=== PATIENT | female | born 1980 | race African-American/Black ===

== ENCOUNTER 2017-03-18 02:06 | Emergency (ER) | payer OTHER ==
[~2017-03-18] VITALS: Ht 162.6 cm; Wt 90.7 kg
[2017-03-18 02:42] LABS: URINE BILIRUBIN NEGATIVE (Negative); URINE BLOOD NEGATIVE (Negative); URINE CLARITY CLEAR; URINE COLOR YELLOW; URINE GLUCOSE-RANDOM* NEGATIVE (Negative); URINE KETONES NEGATIVE (Negative); URINE LEUKOCYTES-REFLEX NEGATIVE (Negative); URINE NITRITE-REFLEX NEGATIVE (Negative); URINE PROTEIN (DIPSTICK) NEGATIVE (Negative); URINE UROBILINOGEN 0.2 E.U./dl (0.2-1.0)
[2017-03-18 03:07] LABS: HEMATOCRIT 37.9 % (37.0-47.0); MCH 28.8 pg (26.0-34.0); MCHC 34.3 g/dL (28.0-37.0); MCV 83.9 fL (80.0-100.0); RBC 4.52 mil/uL (4.20-5.00); RDW 13.7 % (10.5-14.5)
[2017-03-18 03:15] LABS: CALCIUM 8.6 mg/dL (8.5-10.1); CREATININE 0.9 mg/dL (0.6-1.0); POTASSIUM 3.7 mmol/L (3.5-5.1)
[2017-03-18] MEDS ORDERED: ONDANSETRON HCL4 M2 PO (03:19)
[2017-03-18] MEDS ORDERED: TESSALON PERLE100 MG PO (03:19)
[2017-03-18] MEDS ORDERED: OSELB75 PO (03:19)
== END 2017-03-18 03:53 | disposition home or self-care (01) ==
LOC: ER 02:06
PROVIDERS: Emergency Medicine
DX: J98.8 Other specified respiratory disorders (principal); R11.2 Nausea with vomiting, unspecified; J45.909 Unspecified asthma, uncomplicated; F17.210 Nicotine dependence, cigarettes, uncomplicated